=== PATIENT | male | born 1940 | race Two or more races ===

== ENCOUNTER 2024-11-05 09:48 | Outpatient (RCR) | payer MEDICARE, SELFPAY ==
--- NOTE | 2024-11-05 12:01 | CTCCONSULT_ITS ---
[facility] [address] [place], [place] [address] Consultation Note Date: 11/05/2024 MR#: [id number] Name: PAMELA HODGSON : 1940 Dx: C61 prostate cancer Attending physician. Lenin Waite MD Referring physician. Jose M Thomas DO Reason for consultation. Patient with prostate CA PSA 24.8 group 5 referred referred for ration therapy. History of Present Illness: Patient is a pleasant 84-year-old gentleman with prostatism nocturia elevated PSA of 24.8 and underwent biopsy of the prostate 08/30/2024. This revealed adeno CA the prostate ranging from Lois score 7-9 group 2 through 5 in various parts of the prostate. . Perineural invasion identified. Had PSMA PET scan 10/04/2024 revealing a large right central right lateral peripheral and bilateral posterior peripheral prostate mass with increased uptake measuring up to 4.8 cm in size with SUV 50.45 consistent with infiltrating prostate carcinoma. There was no sign of clarice bony mets lung or hepatic mets. Patient was given a 6-month Lupron shot according to patient and is now referred for radiation therapy. 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 Ulcer Meds. Glimepiride amlodipine cephalexin tamsulosin Allergies none to meds Family history. Diabetes and cirrhosis of the liver and family Social History: Patient retired originally from [employer] has nocturia and Review of Systems: Constipation symptoms since Lupron initiated. Physical Exam: General: Well-appearing gentleman in no acute distress HEENT: Atraumatic no cephalic extraocular is intact no oral lesions no cervical or supraclavicular adenopathy CV: Chest clear to auscultation heart regular rate and rhythm ABD: Soft organomegaly or tenderness EXT: No signs of clubbing or edema Assessment:1. Patient with PSA 24.8 group 5 CA of prostate with perineural invasion. 2. Lupron injection 6 months worth was already initiated by Dr. Thomas several weeks ago according to patient. 3. Considering the high [place]'s and elevated PSA, along with his excellent clinical status, I do agree that curative dose of radiation therapy should be offered to this elderly but well-appearing patient. 4. Will treat pelvis to moderate dose of 4500 cGy with boost to the prostate in the range of approximately 7500 cGy. Side effects discussed consent signed. 5. Thank you very much for allowing me to evaluate and manage this patient: Electronically signed by: Placido Hair MD, DABR 11/05/2024 11:59 AM
--- NOTE | 2024-11-05 12:04 | CTCTXPLN_ITS ---
[facility] [address] [place], [place] [address] Physician Clinical Treatment Planning Note Date of Service: 11/05/2024 Name: PAMELA HODGSON D.O.B.: 1940 The patient has agreed to proceed with Radiation therapy. Tests and supporting medical records were interpreted to assist in defining the tumor location and extent of disease. Further imaging will be necessary to contour and delineate the volume to which the XRT will be provided. A. Treatment Intent: Curative B. Modality: 10 MV C. Requested Technique: VMAT D. Treatment Site: Pelvis E. Critical structures to be contoured on plan: F. In order to accomplish this plan, I am ordering/Prescribing the followin. Simulations (s) will be performed to accomplish a reproducible treatment position, to determine optimal treatment portals/beam arrangements, to design beam modifying devices and verify treatment portals on patient prior to the commencement of Radiation Therapy. Pelvis 2. Devices; for immobilization and beam shaping: Vac-Kurt 3. CT Guidance for placement of XRT bob Scan area: 4. Portal images Frequency: 5. Invivo transit dose measurement once per week on all VMAT patients. 6. Special Physics Consult Requested for: 7. Other requests: G. Dose Objectives: Curative Electronically signed by: Placido Hair M.D. 11/05/2024 12:02 PM
--- NOTE | 2024-11-05 12:06 | CTCTXPLNST_ITS ---
Radiation Oncology Treatment Planning Sheet Name: PAMELA HODGSON MR#: [id number] : 1940 Dx: C61 Malignant neoplasm of prostate Date of Service: 11/05/2024 Account #: ?? Pt Treatment Intent: curative palliative other: Stage: Procedure CPT # Ordered Spec. Procedure 36896 Stout Complex (set-up) 60550 Pelvis/prostate 2 Stout Simple 57494 IMRT Plan 04171 2 MLC Devices VMAT 18108 6 Stout 3 D 11546 TRTMT dev Complex 62304 Pelvis 1 TRTMT dev simple 02229 Basic Jeffy 67509 15 Special Dosimetry 40532 Spec Physics 74275 Port Films 96402 SRS Cranial/1FX 76107 SBR 5 FX or Less /ex: 5 = 5 fx 45346 IMRT Simple 60988 4560 42 IMRT Complex 96862 IGRT 40762 42 Rad del netZentry 6-10 84484 Rad del netZentry 11 81288 Cont Med Physics 42446 8 Treatment Planning 69221 2 Weekly Evaluation 61662 8 Rad del com 20 mev 95497 Special Port Plan 90115 TRTMT dev inter 57774 Isodose Complex 79811 Isodose simple 99942 Resp Motion Mgmt Simulation 05557 Placement of Fiducial Markers 38531 Electronically Signed By: Placido Hair MD, [place] 11/05/2024 12:04 PM
== END 2024-11-10 23:59 | disposition home or self-care (01) ==
LOC: SCTC 09:48
PROVIDERS: PCP Internal Medicine; Referring Provider Urology; Visit Provider Radiology Therapeutic Radiology
DX: C61 Malignant neoplasm of prostate (principal)
CPT/HCPCS: 99213; G0463

== ENCOUNTER 2024-12-09 10:00 | Outpatient (RCR) | payer MEDICARE, SELFPAY ==
--- NOTE | 2024-11-20 16:41 | CTCSNOTE_ITS ---
[facility] [address] [place], [place] [address] CT Simulation Note Date: 11/20/2024 MR# [id number] Name: PAMELA HODGSON : 1940 (A) DIAGNOSIS: C61 Malignant neoplasm of prostate (B) Patient was placed in supine position and used vaklok for immobilization purposes. (C) CT slices included pelvis (D) VMAT Will be needed for maximum sparing of adjacent normal critical structures. (E) Patient tolerated the simulation well and left the room in good condition. Electronically signed by: Placido Hair MD, TAER 11/20/2024 4:39 PM
== END 2024-12-10 23:59 | disposition home or self-care (01) ==
LOC: SCTC 10:00
PROVIDERS: PCP Internal Medicine; Referring Provider Internal Medicine; Visit Provider Radiology Therapeutic Radiology
DX: Z51.0 Encounter for antineoplastic radiation therapy (principal); C61 Malignant neoplasm of prostate
CPT/HCPCS: 77014; 77290; 77300; 77301; 77334; 77336; 77338; 77385

== ENCOUNTER 2025-01-10 09:55 | Outpatient (RCR) | payer MEDICARE, SELFPAY ==
--- NOTE | 2024-12-17 11:13 | CTCTRTNOTE_ITS ---
[facility] [address] [place], [place] [address] Weekly Management Date: 12/17/2024 ?? Name: PAMELA HODGSON : 1940 A. Patient is currently at 1750 cGy. Took several days off last week due to dysuria and frequency. B. Patient reportedly went to ER Monday and CTs done results not immediately available to me where everything appeared okay. Feeling better overall. Still on meds Pyridium. Completed antibiotics. C. Resume radiation therapy. Electronically signed by: Placido Hair M.D. 12/17/2024 11:11 AM
--- NOTE | 2024-12-23 08:32 | CTCTRTNOTE_ITS ---
[facility] [address] [place], [place] [address] Weekly Management Date: 12/23/2024 ?? Name: PAMELA Sharp.: 1940 A. Patient is currently at 2500cGy. Experiencing abdominal pain and frequency. Cannot come in today. Told patient to be eval before next treatment when he comes in. Electronically signed by: Placido Hair M.D. 12/23/2024 8:29 AM
== END 2025-01-10 23:59 | disposition home or self-care (01) ==
LOC: SCTC 09:55
PROVIDERS: PCP Internal Medicine; Referring Provider Internal Medicine; Visit Provider Radiology Therapeutic Radiology
DX: Z51.0 Encounter for antineoplastic radiation therapy (principal); C61 Malignant neoplasm of prostate; K59.00 Constipation, unspecified; R53.83 Other fatigue; Z79.818 Long term (current) use of other agents affecting estrogen receptors and estrogen levels
CPT/HCPCS: 36430; 77336; 77385; 86850; 86900; 86901; 86923; A4216; J7040; P9016

== ENCOUNTER 2025-01-23 09:57 | Outpatient (RCR) | payer MEDICARE, SELFPAY ==
--- NOTE | 2025-01-13 11:07 | CTCTRTNOTE_ITS ---
[facility] [address] [place], [place] [address] Weekly Management Date: 01/13/2025 ?? Name: PAMELA SHELLEYMONA : 1940 A. Patient is currently at 5250 cGy. B. Patient is tolerating treatment well. Had 2 units of packed cells. Feeling stronger. C. Resume radiation therapy. Completed XRT 7 more fractions. Scheduled to see utility mechanic supervisor in [place] in a few days. Electronically signed by: Placido Hair M.D. 01/13/2025 11:05 AM
== END 2025-02-09 23:59 | disposition home or self-care (01) ==
LOC: SCTC 09:57
PROVIDERS: PCP Internal Medicine; Referring Provider Internal Medicine; Visit Provider Radiology Therapeutic Radiology
DX: Z51.0 Encounter for antineoplastic radiation therapy (principal); C61 Malignant neoplasm of prostate
CPT/HCPCS: 77336; 77385